=== PATIENT | female | born 1995 | race Asian ===

== ENCOUNTER 2019-04-25 10:47 | Emergency (ER) | payer BC, OTHER ==
[~2019-04-25] VITALS: Ht 157.5 cm; Wt 71.2 kg
[2019-04-25 10:47] VITALS: BP_SYST 119
[~2019-04-25 10:47] MED LIST: ADDERAL XR PO; CETI-101 PO
[2019-04-25] MEDS ORDERED: IBUPROFEN 600 MG TABLET PO ONE (11:15)
[2019-04-25 11:40] LABS: BASOPHILS % (AUTO) 0.4 % (0.0-2.0); EOSINOPHILS # (AUTO) 0.2 K/uL (0.0-0.4); EOSINOPHILS % (AUTO) 2.6 % (0.0-4.0); HEMATOCRIT 45.6 % (36-48); HEMOGLOBIN 15.5 g/dL (12.0-16.0); LYMPHOCYTES # (AUTO) 1.7 K/uL (1.0-5.5); LYMPHOCYTES % (AUTO) 21.9 % (20.5-51.5); MEAN CORPUSCULAR HEMOGLOBIN 30 pg (27-31); MEAN CORPUSCULAR HGB CONC 34 % (32-36); MEAN CORPUSCULAR VOLUME 88 fL (79.0-98.0); MONOCYTES # (AUTO) 0.4 K/uL (0.0-1.0); MONOCYTES % (AUTO) 5.1 % (1.7-9.3); NEUTROPHILS # (AUTO) 5.6 K/uL (1.8-7.7); PLATELET COUNT (AUTO) 348 K/uL (130-430); WHITE BLOOD COUNT (AUTO) 7.9 K/uL (4.8-10.8)
[2019-04-25 12:02] LABS: CALCIUM 9.2 mg/dL (8.4-11.0); CREATININE 0.74 mg/dL (0.55-1.30); POTASSIUM 3.8 mmol/L (3.5-5.1)
[2019-04-25 12:11] LABS: ALBUMIN 3.7 g/dL (3.4-4.8); TOTAL BILIRUBIN 0.4 mg/dL (0.0-1.0)
[2019-04-25 14:15] VITALS: BP_SYST 122
== END 2019-04-25 14:15 | disposition home or self-care (01) ==
LOC: SED 10:47
DX: K59.00 Constipation, unspecified (principal); J90 Pleural effusion, not elsewhere classified; J45.909 Unspecified asthma, uncomplicated
CPT/HCPCS: 36415; 76700-TC; 80053; 83690-TC; 85025; 85379; 99284